=== PATIENT | female | born 1975 | race African-American/Black ===

== ENCOUNTER 2017-11-07 14:57 | Inpatient (IN) | payer BC ==
[2017-11-07 15:04] VITALS: BMI 25.7
--- NOTE | 2017-11-07 15:05 | PDOC ---
Rapid Medical Evaluation Chief Complaint: Chest Pain Time Seen by Provider: 11/07/17 15:01 Medical Evaluation: Allergies Allergy/AdvReac Type Severity Reaction Status Date / Time No Known Allergies Allergy Verified 08/01/15 06:04 11/07/17 15:02 I have performed a brief in-person evaluation of this patient. The patient presents with a chief complaint of:chest tightness this am. Has h/o asthma but states sxs does not feel like her asthma. + sob. No wheezing, cough, f/c Pertinent physical exam findings:Stable w/ clear chest/lungs I have ordered the following:ekg/cxr/labs The patient will proceed to the ED for further evaluation. 11/07/17 15:04
[2017-11-07 15:34] LABS: BASO % 0.2 % (0-2.0); EOS % 0.7 % (0-4.5); HEMATOCRIT 24.6 % (32.4-45.2); LYMPH % 36.6 % (8-40); MCHC 28.2 g/dl (32.0-36.0); MEAN CELL VOLUME 61.6 fl (80-96); MEAN PLT VOLUME 8.4 fl (7.5-11.1); MONO % 7.6 % (3.8-10.2); NEUT % 54.9 % (42.8-82.8); PLATELET COUNT 333 K/MM3 (134-434); RDW 20.7 % (11.6-15.6); WHITE BLOOD COUNT 6.9 K/mm3 (4.0-10.0)
[2017-11-07 15:35] LABS: MCH 17.4 pg (25.7-33.7)
[2017-11-07 15:44] LABS: ALBUMIN 3.4 g/dl (3.4-5.0); ANION GAP 10 (8-16); BILIRUBIN,TOTAL 0.1 mg/dL (0.2-1.0); BLOOD UREA NITROGEN 11 mg/dL (7-18); CALCIUM 8.8 mg/dL (8.5-10.1); CHLORIDE 109 mmol/L (98-107); CO2 24 mmol/L (21-32); CREATININE 0.5 mg/dL (0.55-1.02); GLUCOSE,RANDOM 74 mg/dL (74-106); SGOT/AST 14 U/L (15-37); SGPT/ALT 15 U/L (12-78); SODIUM 143 mmol/L (136-145); TOT PROT 7.3 g/dl (6.4-8.2)
[2017-11-07 15:46] LABS: ALK PHOS 41 U/L (45-117)
--- NOTE | 2017-11-07 16:21 | EKG ---
Test Reason : Blood Pressure : / mmHG Vent. Rate : 065 BPM Atrial Rate : 065 BPM P-R Int : 164 ms QRS Dur : 072 ms QT Int : 420 ms P-R-T Axes : 066 036 059 degrees QTc Int : 436 ms NORMAL SINUS RHYTHM NORMAL ECG WHEN COMPARED WITH ECG OF 01-AUG-2015 06:28, NO SIGNIFICANT CHANGE WAS FOUND Confirmed by LANE LAYTON MD ([id number]) on 11/07/2017 4:21:11 PM Referred By: Confirmed By:LANE LAYTON MD
[2017-11-07] MEDS ORDERED: SODIUM CHLORIDE 1,000 ML IV STA (17:17)
[2017-11-07] MEDS ORDERED: ALBUTEROL SO4 2.5/IPRATROPIUM 0.5 INH SOL 3 ML VIAL.NEB. NEB ONE ×2 (17:36→18:26)
--- NOTE | 2017-11-07 17:44 | PDOC ---
History of Present Illness - General Chief Complaint: Chest Pain Stated Complaint: CHEST PAIN Time Seen by Provider: 11/07/17 15:01 - History of Present Illness Initial Comments: 11/07/17 17:38 42 F with h/o fibroids, anemia, asthma, presenting to ER with 2 days of chest pain and shortness of breath. Pt states that she began to feel chest pressure last night at rest. Pt endorses associated shortness of breath and sensation that she cannot take a deep breath. Denies F/C/cough. Denies leg swelling. Denies recent travel/immobilization. No h/o DVT/PE. Pt notes that she has h/o anemia due to her uterine fibroids. Does not know her baseline Hb. Pt states she is currently on her period. Past History - Past Medical History Allergies/Adverse Reactions: Allergies Allergy/AdvReac Type Severity Reaction Status Date / Time No Known Allergies Allergy Verified 11/07/17 15:04 Home Medications: Ambulatory Orders Cyclobenzaprine HCl [Flexeril -] 10 mg PO HS 11/07/17 COPD: No - Immunization History Immunization Up to Date: Yes - Suicide/Smoking/Psychosocial Hx Smoking History: Never smoked Have you smoked in the past 12 months: No Hx Alcohol Use: No Drug/Substance Use Hx: No Substance Use Type: None Review of Systems - Review of Systems Comments:: 11/07/17 17:40 "GENERAL/CONSTITUTIONAL: No fever or chills. No weakness. HEAD, EYES, EARS, NOSE AND THROAT: No change in vision. No ear pain or discharge. No sore throat. CARDIOVASCULAR: + chest pain + shortness of breath. RESPIRATORY: No cough, wheezing, or hemoptysis. GASTROINTESTINAL: No nausea, vomiting, diarrhea or constipation. GENITOURINARY: No dysuria, frequency, or change in urination. MUSCULOSKELETAL: No joint or muscle swelling or pain. No neck or back pain. SKIN: No rash NEUROLOGIC: No headache, vertigo, loss of consciousness, or change in strength/ sensation. ENDOCRINE: No increased thirst. No abnormal weight change. HEMATOLOGIC/LYMPHATIC: No anemia, easy bleeding, or history of blood clots. ALLERGIC/IMMUNOLOGIC: No hives or skin allergy. " *Physical Exam - Vital Signs Last Vital Signs Temp Pulse Resp BP Pulse Ox 97.9 F 56 L 18 116/60 100 11/07/17 15:02 11/07/17 17:05 11/07/17 15:02 11/07/17 17:05 11/07/17 18:21 - Physical Exam Comments: 11/07/17 17:44 "GENERAL: Awake, alert, and fully oriented, in no acute distress HEAD: No signs of trauma EYES: PERRLA, EOMI, sclera anicteric, conjunctiva clear ENT: Auricles normal inspection, hearing grossly normal, nares patent, oropharynx clear without exudates. Moist mucosa NECK: Nontender, no stepoffs, Normal ROM, supple, no lymphadenopathy, JVD, or masses LUNGS: Breath sounds equal, clear to auscultation bilaterally. No wheezes, and no crackles HEART: Regular rate and rhythm, normal S1 and S2, no murmurs, rubs or gallops ABDOMEN: Soft, nontender, normoactive bowel sounds. No guarding, no rebound. No masses EXTREMITIES: Normal range of motion, no edema. No clubbing or cyanosis. No cords, erythema, or tenderness NEUROLOGICAL: Cranial nerves II through XII intact. 5/5 strength and sensation in all extremities, Normal speech, normal gait, normal cerebellar function SKIN: Warm, Dry, normal turgor, no rashes or lesions noted. " Heart Score/ECG Review - History History: Slightly suspicious - Electrocardiogram EKG: Normal - Age Age: </= 45 - Risk Factors Risk Factors Heart Score: Yes Positive family hx of cardiac disease Based on the list above the patient has:: 1-2 risk factors - Troponin Troponin: </= normal limit - Score Heart Score - Total: 1 - ECG Impressions Comment:: 11/07/17 17:44 NSR, no CHANI/STDs, no TWIs, axis wnl, intervals wnl, rate 65 ED Treatment Course - LABORATORY CBC & Chemistry Diagram: 11/07/17 15:20 11/07/17 15:20 - ADDITIONAL ORDERS Additional order review: Laboratory Results 11/07/17 11/07/17 11/07/17 18:19 18:15 18:15 PT with INR 11.30 INR 1.00 D-Dimer 832 H Sodium Potassium Chloride Carbon Dioxide Anion Gap BUN Creatinine Creat Clearance w eGFR Random Glucose Calcium Total Bilirubin AST ALT Alkaline Phosphatase Creatine Kinase Troponin I Total Protein Albumin Serum , Qual Blood Type AB POSITIVE Antibody Screen Negative Crossmatch See Detail 11/07/17 11/07/17 15:20 15:20 PT with INR INR D-Dimer Sodium 143 Potassium 4.0 Chloride 109 H Carbon Dioxide 24 Anion Gap 10 BUN 11 Creatinine 0.5 L Creat Clearance w eGFR > 60 Random Glucose 74 Calcium 8.8 Total Bilirubin 0.1 L AST 14 L ALT 15 Alkaline Phosphatase 41 L Creatine Kinase 68 Troponin I < 0.02 Total Protein 7.3 Albumin 3.4 Serum , Qual Negative Blood Type Antibody Screen Crossmatch 11/07/17 15:20 RBC 4.00 MCV 61.6 L MCHC 28.2 L RDW 20.7 H MPV 8.4 Neutrophils % 54.9 Lymphocytes % 36.6 Monocytes % 7.6 Eosinophils % 0.7 Basophils % 0.2 - RADIOLOGY Radiology Studies Ordered: Category Date Time Status CHEST CTA [CT] Stat CT Scan 11/07/17 17:37 Taken - Medications Given in the ED: ED Medications Discontinued Medications Generic Name Dose Route Start Last Admin Trade Name Freq PRN Reason Stop Dose Admin Acetaminophen 1,000 mg 11/07/17 22:39 11/07/17 23:02 Ofirmev Injection - IVPB 11/07/17 22:40 1,000 mg ONCE ONE Administration Albuterol/Ipratropium 1 amp 11/07/17 17:36 11/07/17 18:29 Duoneb - NEB 11/07/17 17:37 1 amp ONCE ONE Administration Sodium Chloride 1,000 mls @ 1,000 mls/hr 11/07/17 17:17 11/07/17 18:22 Normal Saline - IV 11/07/17 18:16 1,000 mls/hr ASDIR STA Administration Medical Decision Making - Medical Decision Making 11/07/17 17:45 42 F with chest pain and shortness of breath. Pt found to be anemic with Hb 7.0 , baseline Hb unknown. Pt's symptoms may be 2/2 anemia. However, given pleuritic nature of pt's pain, will r/o PE as well. - Labs, ddimer - CXR - Transfuse PRN - Trial of nebulizers - CT PE if indicated 11/07/17 19:00 Discussed results with pt. I informed her of the need for transfusion given Hb 7.0 and told her that her symptoms of chest pain and shortness of breath may be related to her anemia. I recommended transfusion, but pt refusing at this time, stating that she does not want anyone else's blood inside her. 11/08/17 00:42 CTPE negative. Pt reassessed - continues to have mild chest discomfort and SOB. Pt now more amenable to transfusion but wants to wait for repeat bloodwork first. Will admit for symptomatic anemia and trending of troponins. *DC/Admit/Observation/Transfer Diagnosis at time of Disposition: Anemia - Discharge Dispostion Admit: Yes - Referrals - Patient Instructions - Post Discharge Activity - Attestations Physician Attestion: 11/08/17 00:49 I, Dr. Hawk Cleveland MD, attest that this document has been prepared under my direction and personally reviewed by me in its entirety. I further attest, that it accurately reflects all work, treatment, procedures and medical decision -making performed by me.
[2017-11-07 18:44] LABS: PROTHROMBIN TIME (PATIENT) 11.3 SEC (9.98-11.88)
[2017-11-07] MEDS ORDERED: ACETAMINOPHEN 1000 MG/100 ML VIAL (NON FORMULARY) IVPB ONE (22:39)
[2017-11-07] MEDS ORDERED: ACETAMINOPHEN INJECTION 100 ML IVPB ONE (23:03)
--- NOTE | 2017-11-08 02:04 | HP ---
CHIEF COMPLAINT: Chest tightness, SOB PCP: HISTORY OF PRESENT ILLNESS: The patient is a 42 yo F w/ PMH anemia, asthma and uterine fibroids comes into the ED c/o Chest pain, SOB and weakness for the past two days. Symptoms begain with generalized weakness, then progressed with a gradual onset chest tightness and SOB. The patient is currently complaining of left sided chest pain which radiates from her sternum around to her back. The pain is constant, dull and has no alleviating factors. Deep breaths make the pain worse. Patient also describes difficulty "getting in a full breath" for the same amount of time. Patient has a history of anemia 2/2 uterine fibroids and is currently menstruating. Patient denies fevers, chills, leg swelling, recent surgery, recent immobilization or sick contacts ER course was notable for: (1) 1L NS (2) DDimer 832, Hb 7.0 (3) CTA of chest negative for PE Recent Travel: none PAST MEDICAL HISTORY: see HPI PAST SURGICAL HISTORY: tubal ligation Social History: Smoking: denies Alcohol: denies Drugs: denies Family History: non-contributory Allergies No Known Allergies Allergy (Verified 11/07/17 15:04) HOME MEDICATIONS: Home Medications Medication Instructions Recorded Cyclobenzaprine HCl [Flexeril -] 10 mg PO HS 11/07/17 REVIEW OF SYSTEMS CONSTITUTIONAL: Absent: fever, chills, diaphoresis, loss of appetite, weight change HEENT: Absent: rhinorrhea, nasal congestion, throat pain, throat swelling, difficulty swallowing, mouth swelling, ear pain, eye pain, visual changes CARDIOVASCULAR: Absent: syncope, palpitations, irregular heart rate, lightheadedness, peripheral edema RESPIRATORY: Absent: cough, orthopnea, wheezing, stridor, hemoptysis GASTROINTESTINAL: Absent: abdominal distension, nausea, vomiting, diarrhea, constipation, melena, hematochezia GENITOURINARY: Absent: dysuria, frequency, urgency, hesitancy, hematuria, flank pain, genital pain MUSCULOSKELETAL: Absent: myalgia, arthralgia, joint swelling, back pain, neck pain SKIN: Absent: rash, itching, pallor HEMATOLOGIC/IMMUNOLOGIC: Absent: easy bleeding, easy bruising, lymphadenopathy, frequent infections ENDOCRINE: Absent: unexplained weight gain, unexplained weight loss, heat intolerance, cold intolerance NEUROLOGIC: Absent: headache, focal weakness or paresthesias, dizziness, unsteady gait, seizure, mental status changes, bladder or bowel incontinence PSYCHIATRIC: Absent: anxiety, depression, suicidal or homicidal ideation, hallucinations. PHYSICAL EXAMINATION Vital Signs - 24 hr 11/07/17 11/07/17 11/07/17 15:02 17:05 18:21 Temperature 97.9 F Pulse Rate 67 Pulse Rate [ 56 L Both] Respiratory 18 Rate Blood Pressure 111/67 Blood Pressure 116/60 [Left Arm] O2 Sat by Pulse 100 100 Oximetry (%) GENERAL: Awake, alert, and fully oriented, in mild distress 2/2 pain. HEAD: Normal with no signs of trauma. NECK: Normal range of motion, supple without lymphadenopathy, JVD, or masses. LUNGS: Breath sounds equal, clear to auscultation bilaterally. No wheezes, and no crackles. No accessory muscle use. HEART: Regular rate and rhythm, normal S1 and S2 without murmur, rub or gallop. ABDOMEN: Soft, nontender, not distended, normoactive bowel sounds, no guarding, no rebound, no masses. No hepatomegaly or splenomegaly. LOWER EXTREMITIES: 2+ pulses, warm, well-perfused. No calf tenderness. No peripheral edema. NEUROLOGICAL: Cranial nerves II-X intact. Normal speech. SKIN: Warm, dry, normal turgor, no rashes or lesions noted, normal capillary refill. Laboratory Results - last 24 hr 11/07/17 11/07/17 11/07/17 15:20 15:20 15:20 WBC 6.9 RBC 4.00 Hgb 7.0 L Hct 24.6 L MCV 61.6 L MCH 17.4 L MCHC 28.2 L RDW 20.7 H Plt Count 333 MPV 8.4 Neutrophils % 54.9 Lymphocytes % 36.6 Monocytes % 7.6 Eosinophils % 0.7 Basophils % 0.2 PT with INR INR D-Dimer Sodium 143 Potassium 4.0 Chloride 109 H Carbon Dioxide 24 Anion Gap 10 BUN 11 Creatinine 0.5 L Creat Clearance w eGFR > 60 Random Glucose 74 Calcium 8.8 Total Bilirubin 0.1 L AST 14 L ALT 15 Alkaline Phosphatase 41 L Creatine Kinase 68 Troponin I < 0.02 Total Protein 7.3 Albumin 3.4 Serum , Qual Negative Blood Type Antibody Screen Crossmatch 11/07/17 11/07/17 11/07/17 18:15 18:15 18:19 WBC RBC Hgb Hct MCV MCH MCHC RDW Plt Count MPV Neutrophils % Lymphocytes % Monocytes % Eosinophils % Basophils % PT with INR 11.30 INR 1.00 D-Dimer 832 H Sodium Potassium Chloride Carbon Dioxide Anion Gap BUN Creatinine Creat Clearance w eGFR Random Glucose Calcium Total Bilirubin AST ALT Alkaline Phosphatase Creatine Kinase Troponin I Total Protein Albumin Serum , Qual Blood Type AB POSITIVE Antibody Screen Negative Crossmatch See Detail ASSESSMENT/PLAN: The patient is a 42 yo f w/ PMH anemia 2/2 fibroids and asthma being admitted for symptomatic anemia. #Symptomatic anemia likely 2/2 blood loss -Patient w/ Hb 7.0 -Patient has hx of anemia 2/2 to fibroids and is currently menstruating. -T&S conducted in ED -Will transfuse 2u PRBC -will rpt CBC in AM after 2 Units #Left sided chest pain likely 2/2 anemia -No cardiac risk factors -EKG on arrival NSR -Troponins negative x1; will trend -D-dimer elevated, but CTA chest negative for PE -monitor for resolution after transfusion. #Asthma -not on home medications -No wheezes auscultated -PRN nebs #FEN -no fluids indicated -lytes WNL -regular diet #Prophylaxis -SCDs #Dispo -Admit to med-surg Visit type - Emergency Visit Emergency Visit: Yes ED Registration Date: 11/08/17 Care time: The patient presented to the Emergency Department on the above date and was hospitalized for further evaluation of their emergent condition. - New Patient This patient is new to me today: Yes Date on this admission: 11/08/17 - Critical Care Critical Care patient: No Hospitalist Screening - Colonoscopy Questionnaire Colonoscopy Questionnaire: Colonoscopy Questionnaire - Patient: 50 - 75 years old and never had a screening colonoscopy: Unknown History of colon or rectal polyps, or CA: Unknown History of IBD, Crohn's disease or UC: Unknown History of abdominal radiation therapy as a child: Unknown - Relative: 1 with colon or rectal CA, or polyps at age 60 or younger: Unknown Colon or rectal CA diagnosed at age 45 or younger: Unknown Multiple relatives with colon or rectal CA: Unknown - Outcome: Screening Result: Negative Screen
--- NOTE | 2017-11-08 02:22 | PN ---
Teaching Attending Note Name of Resident: John Merchant ATTENDING PHYSICIAN STATEMENT I saw and evaluated the patient. I reviewed the resident's note and discussed the case with the resident. I agree with the resident's findings and plan as documented. SUBJECTIVE: OBJECTIVE: Vital Signs Period Temp Pulse Resp BP Sys/[place] Pulse Ox Last 24 Hr 97.9 F 56-67 18 111-116/60-67 100-100 Laboratory Results - last 24 hr 11/07/17 11/07/17 11/07/17 15:20 15:20 15:20 WBC 6.9 RBC 4.00 Hgb 7.0 L Hct 24.6 L MCV 61.6 L MCH 17.4 L MCHC 28.2 L RDW 20.7 H Plt Count 333 MPV 8.4 Neutrophils % 54.9 Lymphocytes % 36.6 Monocytes % 7.6 Eosinophils % 0.7 Basophils % 0.2 PT with INR INR D-Dimer Sodium 143 Potassium 4.0 Chloride 109 H Carbon Dioxide 24 Anion Gap 10 BUN 11 Creatinine 0.5 L Creat Clearance w eGFR > 60 Random Glucose 74 Calcium 8.8 Total Bilirubin 0.1 L AST 14 L ALT 15 Alkaline Phosphatase 41 L Creatine Kinase 68 Troponin I < 0.02 Total Protein 7.3 Albumin 3.4 Serum , Qual Negative Blood Type Antibody Screen Crossmatch 11/07/17 11/07/17 11/07/17 18:15 18:15 18:19 WBC RBC Hgb Hct MCV MCH MCHC RDW Plt Count MPV Neutrophils % Lymphocytes % Monocytes % Eosinophils % Basophils % PT with INR 11.30 INR 1.00 D-Dimer 832 H Sodium Potassium Chloride Carbon Dioxide Anion Gap BUN Creatinine Creat Clearance w eGFR Random Glucose Calcium Total Bilirubin AST ALT Alkaline Phosphatase Creatine Kinase Troponin I Total Protein Albumin Serum , Qual Blood Type AB POSITIVE Antibody Screen Negative Crossmatch See Detail Home Medications Medication Instructions Recorded Cyclobenzaprine HCl [Flexeril -] 10 mg PO HS 11/07/17 ASSESSMENT AND PLAN:
[2017-11-08] MEDS ORDERED: ALBUTEROL SO4 2.5/IPRATROPIUM 0.5 INH SOL 3 ML VIAL.NEB. NEB PRN (02:49)
[2017-11-08] MEDS ORDERED: ACETAMINOPHEN 325 MG TABLET (FP) ONE (03:40)
[2017-11-08 04:11] VITALS: BP 120/84; PULSE 66; TEMP 98.7
== END 2017-11-08 03:46 | disposition left against medical advice (07) | DRG 812 ==
LOC: JER 14:57 → JERBED 11-08 00:49 → UNDOADMIN 11-08 01:37
PROVIDERS: ADMIT Internal Medicine; ATTEND Nurse Practitioner Acute Care
DX: D64.9 Anemia, unspecified (principal); J45.909 Unspecified asthma, uncomplicated; D25.9 Leiomyoma of uterus, unspecified; M54.89 Other dorsalgia
CPT/HCPCS: 36415; 36430; 71046-TC-FY; 71275-TC; 80053; 82550; 84484; 84703; 85025; 85379; 85610; 86850; 86900; 86901; 86922; 93005; 93010; 99284-25

== ENCOUNTER 2018-01-23 14:04 | Emergency (ER) | payer BC ==
[2018-01-23] MEDS ORDERED: SODIUM CHLORIDE 0.9% 1000 ML INFUS.BAG IV ONE (14:38)
[2018-01-23] MEDS ORDERED: KETOROLAC TROMETHAMINE 30 MG/1 ML VIAL IVPUSH ONE (14:38)
[2018-01-23 14:42] VITALS: BMI 25.7
[2018-01-23] MEDS ORDERED: KETOROLAC TROMETHAMINE 30 MG/1 ML VIAL ONE (14:43)
--- NOTE | 2018-01-23 14:47 | PDOC ---
History of Present Illness - General Chief Complaint: Pain Stated Complaint: ABD PAIN Time Seen by Provider: 01/23/18 14:30 History Source: Patient Exam Limitations: No Limitations - History of Present Illness Initial Comments: 01/23/18 14:40 The patient is a 42M with a PMH of fibroids, anemia, asthma who presents to the ER with flank pain. The patient states that she has had sharp R flank pain which radiates down to her groin, constant sharpness with bursts of intermittent , worsening, 10/10 pain. The patient denies any fever, chills, nausea, vomiting , CP, SOB, hx of kidney stones, hematuria, dysuria. LMP was January 08. Pt had a tubal ligation 16 years ago. Past History - Past Medical History Allergies/Adverse Reactions: Allergies Allergy/AdvReac Type Severity Reaction Status Date / Time No Known Allergies Allergy Verified 01/23/18 14:41 Home Medications: Ambulatory Orders Cyclobenzaprine HCl [Flexeril -] 5 mg PO PRN 01/23/18 Ferrous Sulfate [Iron] 325 mg PO DAILY 01/23/18 Anemia: Yes Asthma: No Cancer: No Cardiac Disorders: No CVA: No COPD: No CHF: No Dementia: No Diabetes: No GI Disorders: No Disorders: No HTN: No Hypercholesterolemia: No Liver Disease: No Seizures: No Thyroid Disease: No - Surgical History Abdominal Surgery: No Appendectomy: No Cardiac Surgery: No Cholecystectomy: No Lung Surgery: No Neurologic Surgery: No Orthopedic Surgery: No - Immunization History Immunization Up to Date: Yes - Suicide/Smoking/Psychosocial Hx Smoking History: Never smoked Have you smoked in the past 12 months: No Hx Alcohol Use: No Drug/Substance Use Hx: No Substance Use Type: None Hx Substance Use Treatment: No Review of Systems - Review of Systems Able to Perform ROS?: Yes Comments:: 01/23/18 14:50 GENERAL/CONSTITUTIONAL: No fever or chills. No weakness. HEAD, EYES, EARS, NOSE AND THROAT: No change in vision. No ear pain or discharge. No sore throat. CARDIOVASCULAR: No chest pain, palpitations, or lightheadedness. RESPIRATORY: No cough, wheezing, shortness of breath, or hemoptysis. GASTROINTESTINAL: No nausea, vomiting, diarrhea, constipation, or abdominal pain. GENITOURINARY: Positive for R flank pain. No dysuria, frequency, hematuria, or change in urination. MUSCULOSKELETAL: No joint or muscle swelling or pain. No neck or back pain. SKIN: No rash or lesions. NEUROLOGIC: No headache, numbness, tingling, weakness, loss of consciousness, or change in strength/sensation. ENDOCRINE: No increased thirst. No abnormal weight change. HEMATOLOGIC/LYMPHATIC: No anemia, easy bleeding, or history of blood clots. ALLERGIC/IMMUNOLOGIC: No hives or skin allergy. Is the patient limited Macedonian proficient: No *Physical Exam - Physical Exam Comments: 01/23/18 14:50 GENERAL: Well developed, well nourished. Awake and alert. In moderate distress. HEENT: Normocephalic, atraumatic. Hearing grossly normal. Moist mucous membranes. PERRLA, EOMI. No conjunctival pallor. Sclera are non-icteric. NECK: Supple. Full ROM. No JVD. CARDIOVASCULAR: Regular rate and rhythm. No murmurs, rubs, or gallops. PULMONARY: No evidence of respiratory distress. Lungs clear to auscultation bilaterally. No wheezing, rales or rhonchi. ABDOMINAL: Soft. Non-tender. Non-distended. No rebound or guarding. No organomegaly. Normoactive bowel sounds. GENITOURINARY: R CVA tenderness. MUSCULOSKELETAL: Normal range of motion at all joints. No bony deformities or tenderness. EXTREMITIES: No cyanosis. No clubbing. No edema. No calf tenderness. SKIN: Warm and dry. Normal capillary refill. No rashes. No jaundice. NEUROLOGICAL: Alert, awake, appropriate. Cranial nerves 2-12 intact. Normal speech. Gait is normal without ataxia. PSYCHIATRIC: Cooperative. Good eye contact. Appropriate mood and affect. ED Treatment Course - LABORATORY CBC & Chemistry Diagram: 01/23/18 14:50 01/23/18 14:50 Medical Decision Making - Medical Decision Making 01/23/18 14:52 The patient is a 42F with PMH of anemia who presents to the ER with worsening R flank pain. The patient has had a tubal but I am still concerned for ectopic. However, due to R CVA tenderness, I am concerned for a nephrolithiasis, septic stone, and hydroureter. Given toradol for pt comfort. Pt states she feels much better after the toradol. Will place order for CT as this is the patient's first nephrolithiasis. 01/23/18 16:29 BUN/Cr WNL. UA negative. Negative test. Pending CT. 01/23/18 18:16 CT indicates b/l nephrolithiasis and enlarged uterus. Pt states she feels better. Will d/c home with PCP f/u. *DC/Admit/Observation/Transfer Diagnosis at time of Disposition: Nephrolithiasis - Discharge Dispostion Disposition: HOME Condition at time of disposition: Stable Decision to Admit order: No - Referrals Referrals: Sam Soto MD [Primary Care Provider] - - Patient Instructions Printed Discharge Instructions: DI for Flank Pain Additional Instructions: You had a CT scan done today which showed small kidney stones and an enlarged uterus. You can follow up with your primary care doctor about this to get an ultrasound. Please return to the ER if you have any signs or symptoms of chest pain, shortness of breath, uncontrollable fever, chills, nausea, vomiting, numbness, tingling, or weakness in any part of your body, changes in vision, or slurred speech. Please follow up with your primary care physician in 2-3 days. Please return to the ER if symptoms persist, worsen, or new symptoms arise. - Post Discharge Activity
[2018-01-23 14:58] LABS: BASO % 0.2 % (0-2.0); EOS % 0.4 % (0-4.5); HEMATOCRIT 30.6 % (32.4-45.2); HEMOGLOBIN 9.7 GM/dL (10.7-15.3); LYMPH % 35.9 % (8-40); MCH 22.4 pg (25.7-33.7); MCHC 31.6 g/dl (32.0-36.0); MEAN CELL VOLUME 70.9 fl (80-96); MEAN PLT VOLUME 8.8 fl (7.5-11.1); MONO % 6.4 % (3.8-10.2); NEUT % 57.1 % (42.8-82.8); PLATELET COUNT 239 K/MM3 (134-434); RBC 4.32 M/mm3 (3.60-5.2); RDW 26.2 % (11.6-15.6); WHITE BLOOD COUNT 7.1 K/mm3 (4.0-10.0)
[2018-01-23 14:59] LABS: URINE APPEARANCE CLEAR; URINE BILIRUBIN NEGATIVE (<2.0 mg/dL); URINE COLOR LTYELLOW; URINE GLUCOSE (UA) NEGATIVE (NEGATIVE); URINE KETONE NEGATIVE (NEGATIVE); URINE LEUK ESTERASE NEGATIVE (NEGATIVE); URINE NITRITE NEGATIVE (NEGATIVE); URINE PROTEIN NEGATIVE (NEGATIVE); URINE UROBILINOGEN NEGATIVE mg/dL (0.2-1.0)
--- NOTE | 2018-01-23 15:00 | PDOC ---
Attending Attestation - HPI HPI: 01/23/18 15:53 The patient is a 42 year old female, with a significant past medical history of anemia, chronic back pain, who presents to the emergency department with right flank pain since this morning. The patient reports waking up with right sided back pain, nonradiating in nature. She reports her pain is sharp, constant, but intermittently worse. She denies any associated dysuria, hematuria, frequency, or urgency. She denies any abdominal pain, nausea, or vomiting. She reports some dizziness, denies any fever or chills. She denies any trauma, recent travel , or sick contacts. Allergies: NKDA Past Surgical History: None reported Social History: Non smoker. No ETOH or recreational drug use. - Medical Decision Making 01/23/18 15:53 Documentation prepared by Zuleyka Mcmillan, acting as medical transcriptionist for Telly Gipson MD. <Zuleyka Mcmillan - Last Filed: 01/23/18 17:40> - Resident Resident Name: Shabbir Coats - ED Attending Attestation I have performed the following: I have examined & evaluated the patient, The case was reviewed & discussed with the resident, I agree w/resident's findings & plan, Exceptions are as noted - Physicial Exam PE: 01/23/18 17:44 Patient is awake and alert, well-nourished, in moderate distress Normocephalic, atraumatic PERRLA, EOMI CTA RRR Abdomen is soft, nontender, nondistended; no CVA tenderness bilaterally + Reproducible right mid thoracic tenderness to palpation along the posterior axillary line No lower extremity edema No midline TLS deformity or tenderness to palpation - Medical Decision Making 01/23/18 17:46 42-year-old female with history of chronic back pain presents with atraumatic right-sided thoracic back pain. Patient is afebrile and nontoxic appearing. Differential diagnoses includes musculoskeletal pain versus nephrolithiasis versus pyelonephritis. I do not suspect a PE at this time. We'll administer Toradol and the tramadol for pain control. Will obtain CT that and pelvis to rule out kidney stones. Will reassess. 01/23/18 17:47 Patient is negative for PE by perc rule. <Telly Gipson - Last Filed: 01/23/18 17:47>
[2018-01-23 15:45] LABS: ALBUMIN 3.9 g/dl (3.4-5.0); ANION GAP 6 (8-16); BILIRUBIN,TOTAL 0.2 mg/dL (0.2-1.0); BLOOD UREA NITROGEN 13 mg/dL (7-18); CALCIUM 8.8 mg/dL (8.5-10.1); CHLORIDE 109 mmol/L (98-107); CO2 25 mmol/L (21-32); CREATININE 0.7 mg/dL (0.55-1.02); GLUCOSE,RANDOM 82 mg/dL (74-106); SGOT/AST 16 U/L (15-37); SGPT/ALT 15 U/L (12-78); SODIUM 140 mmol/L (136-145); TOT PROT 8.4 g/dl (6.4-8.2)
[2018-01-23 15:46] LABS: ALK PHOS 43 U/L (45-117)
[2018-01-23] MEDS ORDERED: traMADol HCL 50 MG TABLET PO ONE (17:32)
[2018-01-23] MEDS ORDERED: traMADol HCL 50 MG TABLET ONE (17:41)
[2018-01-23 18:43] VITALS: BP 108/70; PULSE 56; TEMP 98.3
== END 2018-01-23 18:43 | disposition home or self-care (01) ==
LOC: JER 14:04
PROC: 3E0333Z Introduction of Anti-inflammatory into Peripheral Vein, Percutaneous Approach (ICD-10-PCS; principal; 2018-01-23)
DX: N20.0 Calculus of kidney (principal); D64.9 Anemia, unspecified; N85.2 Hypertrophy of uterus
CPT/HCPCS: 36415; 74176-TC; 80053; 81003; 84703; 85025; 99282-25; J7030

== ENCOUNTER 2018-10-30 09:34 | Day surgery (SDC) | payer BC ==
[2018-10-30 10:53] LABS: HEMATOCRIT 24.1 % (32.4-45.2); HEMOGLOBIN 7.1 GM/dL (10.7-15.3); MCHC 29.5 g/dl (32.0-36.0); MEAN CELL VOLUME 60.3 fl (80-96); MEAN PLT VOLUME 8.3 fl (7.5-11.1); PLATELET COUNT 312 K/MM3 (134-434); WHITE BLOOD COUNT 4.9 K/mm3 (4.0-10.0)
[2018-10-30 10:56] VITALS: TEMP 98
[2018-10-30 10:56] LABS: MCH 17.8 pg (25.7-33.7)
[2018-10-30] MEDS ORDERED: FERRIC CARBOXYMALTOSE 750 MG in SODIUM CHLORIDE 250 ML IVPB ONE (11:00)
[2018-10-30 13:22] VITALS: BP 138/62; PULSE 71
== END 2018-10-30 13:33 | disposition home or self-care (01) ==
LOC: JASU-ENDO 09:34
PROVIDERS: ATTEND Obstetrics & Gynecology
PROC: 3E033GC Introduction of Other Therapeutic Substance into Peripheral Vein, Percutaneous Approach (ICD-10-PCS; principal; 2018-10-30)
DX: D50.9 Iron deficiency anemia, unspecified (principal)
CPT/HCPCS: 36415; 82728; 85027; 96365; J1439

== ENCOUNTER 2024-10-23 04:54 | Inpatient (IN) | payer BC ==
[2024-10-20 14:21] VITALS: BMI 24.1
[2024-10-23 08:40] LABS: INR 1.17 (0.83-1.09); PROTHROMBIN TIME (PATIENT) 12.7 SEC (9.7-13.0)
[2024-10-23 09:33] LABS: BASO % 0.6 % (0-2.0); HEMATOCRIT 20.4 % (32.4-45.2); LYMPH % 35.3 % (8-40); MEAN CELL VOLUME 56.8 fl (80-96); MONO % 13.1 % (3.8-10.2); PLATELET COUNT 425 10^3/uL (134-434); RBC 3.58 M/mm3 (3.60-5.2); RDW 25.6 % (11.6-15.6); WHITE BLOOD COUNT 4.5 K/mm3 (4.0-10.0)
[2024-10-23 09:37] LABS: MCH 15.9 pg (25.7-33.7)
[2024-10-23 09:41] LABS: HEMOGLOBIN 5.7 GM/dL (10.7-15.3)
[2024-10-23] MEDS ORDERED: HEPARIN NA (PORCINE) 5,000 UNITS/ML 1ML VIAL ONE (09:42)
[2024-10-23 10:26] LABS: ANISOCYTOSIS 3+; MACROCYTOSIS 0; TEAR DROP CELLS 1+
[2024-10-23] MEDS ORDERED: KETOROLAC TROMETHAMINE 30 MG/1 ML VIAL ONE (10:56)
[2024-10-23] MEDS ORDERED: FENTANYL CITRATE/PF 50 MCG/ML VIAL ONE ×4 (11:06→12:15)
[2024-10-23] MEDS ORDERED: HYDROmorphone HCL CARPU-JECT 2 MG/1 ML DISP.SYRIN ONE (11:06)
[2024-10-23] MEDS ORDERED: MIDAZOLAM HCL 2 MG/2 ML SINGLE DOSE VIAL ONE (11:11)
[2024-10-23] MEDS: MIDAZOLAM HCL 2 MG/2 ML SINGLE DOSE VIAL IVPUSH ONE ×2 (11:24→12:31)
[2024-10-23] MEDS: FENTANYL CITRATE/PF 50 MCG/ML VIAL IVPUSH ONE ×5 (11:24→12:31)
[2024-10-23] MEDS: SODIUM CHLORIDE 0.9% 150 ML IV ONE (11:27)
[2024-10-23] MEDS: KETOROLAC TROMETHAMINE 15 MG/ML VIAL IVPUSH ONE ×2 (12:01→12:23)
[2024-10-23] MEDS: SODIUM CHLORIDE 150 ML IV ONE (12:07)
[2024-10-23] MEDS: HYDROmorphone HCL CARPU-JECT 2 MG/1 ML DISP.SYRIN IVPUSH ONE (12:14)
[2024-10-23] MEDS: ONDANSETRON 4 MG/2 ML VIAL IVPUSH ONE (12:55)
[2024-10-23] MEDS ORDERED: ONDANSETRON 4 MG/2 ML VIAL ONE (13:24)
[2024-10-23] MEDS: ONDANSETRON 4 MG/2 ML VIAL ONE (13:25)
[2024-10-23] MEDS ORDERED: HYDROmorphone *PCA* 10MG/50ML DISP.SYRIN ONE (13:31)
[2024-10-23] MEDS: SODIUM CHLORIDE 1,000 ML IV SCH (13:45)
[2024-10-23] MEDS: HYDROmorphone *PCA* 10MG/50ML DISP.SYRIN PCA SCH (13:45)
[2024-10-23] MEDS ORDERED: ONDANSETRON 4 MG/2 ML VIAL IVPUSH PRN (14:27)
[2024-10-23] MEDS ORDERED: ALBUTEROL SO4 HFA INHALER IH PRN (16:23)
[2024-10-23] MEDS: ONDANSETRON 4 MG/2 ML VIAL IVPUSH PRN (21:44)
[2024-10-23] MEDS: ACETAMINOPHEN 1000 MG/100 ML BAG IVPB PRN (23:34)
[2024-10-24 09:07] LABS: BASO % 0.3 % (0-2.0); EOS % 0.5 % (0-4.5); HEMATOCRIT 20.9 % (32.4-45.2); LYMPH % 29.9 % (8-40); MCHC 26.8 g/dl (32.0-36.0); MEAN CELL VOLUME 57.3 fl (80-96); MEAN PLT VOLUME 8.1 fl (7.5-11.1); MONO % 10.1 % (3.8-10.2); NEUT % 59.2 % (42.8-82.8); PLATELET COUNT 453 10^3/uL (134-434); RBC 3.64 M/mm3 (3.60-5.2); RDW 26.2 % (11.6-15.6); WHITE BLOOD COUNT 6.4 K/mm3 (4.0-10.0)
[2024-10-24 09:12] LABS: MCH 15.4 pg (25.7-33.7)
[2024-10-24 09:16] LABS: HEMOGLOBIN 5.6 GM/dL (10.7-15.3)
[2024-10-24 09:31] LABS: POTASSIUM 4.2 mmol/L (3.5-5.1)
[2024-10-24 09:40] LABS: ALBUMIN 3.2 g/dl (3.4-5.0); BLOOD UREA NITROGEN 8.8 mg/dL (7-18)
[2024-10-24 09:41] LABS: CALCIUM 8.7 mg/dL (8.5-10.1)
[2024-10-24 09:43] LABS: CREATININE 0.6 mg/dL (0.55-1.3); TOT PROT 7.1 g/dl (6.4-8.2)
[2024-10-24 09:45] LABS: BILIRUBIN,TOTAL 0.4 mg/dL (0.2-1)
[2024-10-24] MEDS: SERTRALINE HCL 25 MG TABLET (FP) PO SCH (10:28)
[2024-10-24 15:26] LABS: RETICULOCYTES 1.31 % (0.5-1.5)
[2024-10-24 15:51] LABS: ANISOCYTOSIS 3+; MACROCYTOSIS 0; TEAR DROP CELLS 1+
[2024-10-24] MEDS: ACETAMINOPHEN 1000 MG/100 ML BAG IVPB PRN (17:59)
[2024-10-24] MEDS: morphine SULFATE 4 MG/ML VIAL IVPUSH PRN (20:14)
[2024-10-24] MEDS: INDOMETHACIN 50 MG CAPSULE PO SCH (21:23)
[2024-10-24] MEDS: ACETAMINOPHEN 1000 MG/100 ML BAG IVPB SCH (22:18)
[2024-10-25 08:29] LABS: BASO % 0.1 % (0-2.0); EOS % 0.4 % (0-4.5); HEMATOCRIT 19.5 % (32.4-45.2); LYMPH % 20.9 % (8-40); MCHC 27.6 g/dl (32.0-36.0); MEAN CELL VOLUME 55.9 fl (80-96); MEAN PLT VOLUME 7.9 fl (7.5-11.1); MONO % 5.7 % (3.8-10.2); NEUT % 72.9 % (42.8-82.8); PLATELET COUNT 407 10^3/uL (134-434); RBC 3.49 M/mm3 (3.60-5.2); RDW 25.6 % (11.6-15.6); WHITE BLOOD COUNT 8.2 K/mm3 (4.0-10.0)
[2024-10-25 08:30] LABS: MCH 15.4 pg (25.7-33.7)
[2024-10-25 08:31] LABS: ADD RBC MORPHOLOGY YES
[2024-10-25 08:34] LABS: HEMOGLOBIN 5.4 GM/dL (10.7-15.3)
[2024-10-25 08:47] LABS: ALBUMIN 3.1 g/dl (3.4-5.0); BLOOD UREA NITROGEN 9.6 mg/dL (7-18); CALCIUM 8.5 mg/dL (8.5-10.1)
[2024-10-25 08:50] LABS: CREATININE 0.5 mg/dL (0.55-1.3)
[2024-10-25 08:51] LABS: BILIRUBIN,TOTAL 0.4 mg/dL (0.2-1)
[2024-10-25 09:41] LABS: POTASSIUM 3.8 mmol/L (3.5-5.1)
[2024-10-25] MEDS: IRON SUCROSE INJECTION 200 MG in SODIUM CHLORIDE 100 ML IVPB ONE (17:16)
[2024-10-26 11:11] LABS: BASO % 0.2 % (0-2.0); EOS % 0.1 % (0-4.5); HEMATOCRIT 21.1 % (32.4-45.2); LYMPH % 11.4 % (8-40); MCHC 26.5 g/dl (32.0-36.0); MEAN CELL VOLUME 56.7 fl (80-96); MONO % 4.7 % (3.8-10.2); NEUT % 83.6 % (42.8-82.8); PLATELET COUNT 424 10^3/uL (134-434); RBC 3.72 M/mm3 (3.60-5.2); RDW 26.4 % (11.6-15.6); WHITE BLOOD COUNT 16.8 K/mm3 (4.0-10.0)
[2024-10-26 11:17] LABS: HEMOGLOBIN 5.6 GM/dL (10.7-15.3)
[2024-10-26 11:18] LABS: POTASSIUM 3.6 mmol/L (3.5-5.1)
[2024-10-26 11:20] LABS: CALCIUM 8.8 mg/dL (8.5-10.1)
[2024-10-26 11:21] LABS: ALBUMIN 3.1 g/dl (3.4-5.0); BLOOD UREA NITROGEN 7.6 mg/dL (7-18)
[2024-10-26] MEDS: PANTOPRAZOLE 40 MG TABLET PO SCH (11:23)
[2024-10-26 11:24] LABS: CREATININE 0.6 mg/dL (0.55-1.3)
[2024-10-26 11:26] LABS: BILIRUBIN,TOTAL 0.5 mg/dL (0.2-1); TOT PROT 7.1 g/dl (6.4-8.2)
[2024-10-26] MEDS: IRON SUCROSE INJECTION 200 MG in SODIUM CHLORIDE 100 ML IVPB SCH (15:19)
[2024-10-26] MEDS: SENNOSIDES 8.6MG TABLET (FP) PO PRN (21:09)
[2024-10-27 09:23] LABS: BASO % 0.2 % (0-2.0); EOS % 0.1 % (0-4.5); HEMATOCRIT 22.3 % (32.4-45.2); LYMPH % 11.3 % (8-40); MCHC 25.9 g/dl (32.0-36.0); MEAN CELL VOLUME 57.4 fl (80-96); MEAN PLT VOLUME 7.8 fl (7.5-11.1); MONO % 4.1 % (3.8-10.2); NEUT % 84.3 % (42.8-82.8); PLATELET COUNT 414 10^3/uL (134-434); RBC 3.88 M/mm3 (3.60-5.2); RDW 26.8 % (11.6-15.6); WHITE BLOOD COUNT 17.4 K/mm3 (4.0-10.0)
[2024-10-27 09:26] LABS: MCH 14.9 pg (25.7-33.7)
[2024-10-27 09:47] LABS: POTASSIUM 4.1 mmol/L (3.5-5.1)
[2024-10-27 09:50] LABS: CALCIUM 9.3 mg/dL (8.5-10.1)
[2024-10-27 09:51] LABS: ALBUMIN 3.3 g/dl (3.4-5.0); BLOOD UREA NITROGEN 12.4 mg/dL (7-18)
[2024-10-27 09:54] LABS: CREATININE 0.6 mg/dL (0.55-1.3)
[2024-10-27 09:55] LABS: BILIRUBIN,TOTAL 0.8 mg/dL (0.2-1)
[2024-10-27 09:56] LABS: TOT PROT 7.8 g/dl (6.4-8.2)
[2024-10-27 10:00] LABS: HEMOGLOBIN 5.8 GM/dL (10.7-15.3)
[2024-10-27] MEDS: ACETAMINOPHEN 1000 MG/100 ML BAG IVPB SCH (10:37)
[2024-10-28 03:42] VITALS: RESP 18
[2024-10-28 10:21] LABS: BASO % 0.2 % (0-2.0); EOS % 0.4 % (0-4.5); HEMATOCRIT 20.4 % (32.4-45.2); LYMPH % 15.6 % (8-40); MCHC 26.2 g/dl (32.0-36.0); MEAN CELL VOLUME 58.3 fl (80-96); MEAN PLT VOLUME 8.4 fl (7.5-11.1); MONO % 4.5 % (3.8-10.2); NEUT % 79.3 % (42.8-82.8); PLATELET COUNT 361 10^3/uL (134-434); RBC 3.51 M/mm3 (3.60-5.2); RDW 27.1 % (11.6-15.6)
[2024-10-28 10:23] LABS: MCH 15.3 pg (25.7-33.7)
[2024-10-28 10:27] LABS: HEMOGLOBIN 5.4 GM/dL (10.7-15.3)
[2024-10-28 10:34] LABS: POTASSIUM 4.1 mmol/L (3.5-5.1)
[2024-10-28 10:37] LABS: CALCIUM 8.6 mg/dL (8.5-10.1)
[2024-10-28 10:38] LABS: ALBUMIN 2.8 g/dl (3.4-5.0); BLOOD UREA NITROGEN 16.7 mg/dL (7-18)
[2024-10-28 10:41] LABS: CREATININE 0.7 mg/dL (0.55-1.3)
[2024-10-28 10:42] LABS: BILIRUBIN,TOTAL 0.4 mg/dL (0.2-1)
[2024-10-29] MEDS: ACETAMINOPHEN/CAFFEINE/BUTALBITAL 1 TAB PO ONE (01:23)
[2024-10-29 05:36] VITALS: BP 103/66; PULSE 63; TEMP 98.1
[2024-10-29 09:12] LABS: BASO % 0.4 % (0-2.0); EOS % 0.4 % (0-4.5); HEMATOCRIT 21.9 % (32.4-45.2); LYMPH % 22.7 % (8-40); MCH 16.2 pg (25.7-33.7); MCHC 27.1 g/dl (32.0-36.0); MONO % 5.5 % (3.8-10.2); PLATELET COUNT 343 10^3/uL (134-434); RBC 3.65 M/mm3 (3.60-5.2); RDW 27.8 % (11.6-15.6); WHITE BLOOD COUNT 9.2 K/mm3 (4.0-10.0)
[2024-10-29 09:23] LABS: HEMOGLOBIN 5.9 GM/dL (10.7-15.3)
[2024-10-29 09:25] LABS: POTASSIUM 4.3 mmol/L (3.5-5.1)
[2024-10-29 09:27] LABS: CALCIUM 9.3 mg/dL (8.5-10.1)
[2024-10-29 09:28] LABS: BLOOD UREA NITROGEN 8.3 mg/dL (7-18)
[2024-10-29 09:31] LABS: CREATININE 0.5 mg/dL (0.55-1.3)
[2024-10-29 09:32] LABS: BILIRUBIN,TOTAL 0.3 mg/dL (0.2-1); TOT PROT 7.3 g/dl (6.4-8.2)
== END 2024-10-29 16:05 | disposition home or self-care (01) | DRG 750 ==
LOC: JRADIR 04:54 → JASUSAT 04:54 → J6S 16:14 → JASUSAT 16:16
PROVIDERS: ADMIT Internal Medicine; ATTEND Internal Medicine
PROC: 04LE3DT Occlusion of Right Uterine Artery with Intraluminal Device, Percutaneous Approach (ICD-10-PCS; principal; 2024-10-23)
PROC: 04LF3DU Occlusion of Left Uterine Artery with Intraluminal Device, Percutaneous Approach (ICD-10-PCS; 2024-10-23)
PROC: B41JZZZ Fluoroscopy of Other Lower Arteries (ICD-10-PCS; 2024-10-23)
DX: D25.9 Leiomyoma of uterus, unspecified (principal); R51.9 Headache, unspecified; G62.9 Polyneuropathy, unspecified; D86.9 Sarcoidosis, unspecified; D50.9 Iron deficiency anemia, unspecified; N92.0 Excessive and frequent menstruation with regular cycle
CPT/HCPCS: 36415; 37243; 70450-TC; 70551-TC; 71045-TC-FY; 80053; 82728; 83615; 84703; 85025; 85045; 85610; 86850; 86870; 86880; 86900; 86901; 86902; 86922; 94010; J0131; J1756